=== PATIENT | male | born 1965 | race Caucasian/White ===

== ENCOUNTER 2023-09-14 11:26 | Emergency (ER) | payer OTHER, SELFPAY ==
[2023-09-14 11:36] VITALS: BP 168/110
[2023-09-14 12:06] VITALS: BMI 33.2
[2023-09-14 12:32] LABS: % Basophils 0.6 % (0-2); % Immature Granulocytes 0.3 % (0-0.5); % Lymphocytes 14.3 % (20.5-51.1); % Neutrophils 73.8 % (42.2-75.2); Absolute Monocytes 0.7 10^3/uL (0.1-0.6); Hematocrit 51.5 % (39.0-52.0); Hemoglobin 18.4 g/dL (13.0-18.0); Mean Corp Hgb Conc. 35.7 g/dL (33.0-37.0); Mean Corpuscular Hgb 30.2 pg (27.0-31.0); Mean Corpuscular Volume 84.4 fL (80.0-94.0); Mean Platelet Volume 8.8 fL (7.4-10.4); Nucleated Red Blood Cells % 0 % (-); Platelet Count 234 10^3/uL (130-400); Red Cell Dist. Width 12.4 % (11.5-14.5); White Blood Cell Count 6.7 10^3/uL (4.8-10.8)
[2023-09-14 12:38] VITALS: BP 146/90
[2023-09-14 13:00] LABS: ALT (SGPT) 37 U/L (0-50); AST (SGOT) 39 U/L (17-59); Albumin 4.5 g/dl (3.5-5.0); Alkaline Phosphatase 67 U/L (38-126); Blood Urea Nitrogen 16 mg/dl (9-20); Calcium 9.5 mg/dl (8.4-10.2); Carbon Dioxide 32 mmol/L (22-30); Chloride 95 mmol/L (98-107); Estimated Creatinine Clearance 93 ml/min; Glucose 105 mg/dl (70-99); Lipase 74 U/L (23-300); Potassium 4.2 mmol/L (3.5-5.1); Sodium 135 mmol/L (135-145); Total Bilirubin 0.6 mg/dl (0.2-1.3); Total Protein 7.1 g/dl (6.3-8.2); eGFR > 60.00
--- NOTE | 2023-09-14 13:15 | ED.GENMED ---
History of Present Illness
General
Chief Complaint: Abdominal Pain
Source: patient
Exam Limitations: none
Time Seen by Provider: 09/14/23 11:45
Nursing documentation reviewed up to this point in time: agreed with
History of Present Illness
History of Present Illness:
57-year-old male with a past medical history of hypertension, recurrent diverticulitis who presents to the emergency room for evaluation of abdominal pain. Patient reports onset of symptoms 5 days ago and has been generally worsening since that
time. He reports pain mainly across his lower abdomen. No clear triggering or relieving factors noted. He says he has had similar symptoms many times in the past from diverticulitis. He says that he was prescribed antibiotics (Augmentin) for
presumptive diverticulitis which he has been taking for the past 5 days without improvement. He has had some nausea and decreased appetite but no vomiting. He says occasional loose stools. He reports subjective fever but has not checked his
temperature at home. Denies any urinary symptoms. He denies any back or flank pain. He denies any chest pain or shortness of breath or any other symptoms. Prior surgical history of cholecystectomy.
Review of Systems
Review of Systems
All Other Systems: ROS reviewed and negative except as documented in HPI and ROS
Constitutional: Reports fever and chills
EENT: Denies sore throat or runny nose
Respiratory: Denies cough or trouble breathing
Cardiac: Denies chest pain
ABD/GI: Reports abdominal pain, nausea and diarrhea; Denies vomiting
: Denies dysuria, frequency or flank pain
Musculoskeletal: Denies neck pain or back pain
Neurological: Denies dizzy, headache, weakness or numbness
Phy Exam
Physical Exam
Physical Exam:
General: Awake, alert; no acute distress
Head: Normocephalic, atraumatic
Eyes: Conjunctiva normal, sclera anicteric
Throat: Airway intact, handling secretions
Neck: Trachea midline, supple without meningismus
Lungs: Clear to auscultation bilaterally, no wheezing, rales, rhonchi
Heart: Regular rate and rhythm, no murmurs, gallops, or rubs
Abd: Soft, non distended, tender to palpation across lower abdomen worse in the left lower quadrant
Back: No CVA tender
Neuro: No gross deficit
Skin: no rash
Extremities: No edema in extremities, warm well-perfused
Scores
Heart Failure Risk
Heart Failure Risk Score: Not Applicable
Heart Score for Chest Pain Patients
STEMI patient?: Not applicable
Withdrawal Assessment of Alcohol
Withdrawal Assessment Completed?: Not applicable
Course
Orders/Labs/Results
Orders:
Orders
09/14/23 12:21
CMP [Comprehensive Metabolic Panel] Urgent
Complete Blood Count/With Diff Urgent
Lipase Urgent
09/14/23 12:34
CT Abd/pelvis W Iv Cont Urgent
Comment:
Reason For Exam: lower abd pain, h/o diverticulitis
09/14/23 12:46
Urinalysis Reflex To Culture Urgent
Date Specimen was Collected: 09/14/23
Time Specimen was Collected: 12:44
Urine Microscopic Reflex Cult Urgent
09/14/23 14:39
Ciprofloxacin HCl [Cipro] 500 mg PO ONCE ONE
MetroNIDAZOLE [Flagyl] 500 mg PO NOW STA
Abnormal Lab Results
09/14/23 09/14/23
12:21 12:46
Hgb 18.4 H g/dL
(13.0-18.0)
Absolute Lymphs (auto) 1.0 L 10^3/uL
(1.2-3.4)
Absolute Monos (auto) 0.7 H 10^3/uL
(0.1-0.6)
Lymphocytes % 14.3 L %
(20.5-51.1)
Monocytes % 11.0 H %
(1.7-9.3)
Chloride 95 L mmol/L
(98-107)
Carbon Dioxide 32 H mmol/L
(22-30)
Glucose 105 H mg/dl
(70-99)
Ur Occult Blood Reflex Trace A
(Negative)
09/14/23 12:21
09/14/23 12:21
Vital Signs
Initial and Last Documented VS:
Initial Vital Signs
Temp Pulse Resp BP Pulse Ox
36.6 C 75 16 168/110 97
09/14/23 11:36 09/14/23 11:36 09/14/23 11:36 09/14/23 11:36 09/14/23 11:36
Last Documented Vital Signs
Temp Pulse Resp BP Pulse Ox
36.6 C 74 18 160/96 97
09/14/23 11:36 09/14/23 14:17 09/14/23 14:17 09/14/23 14:17 09/14/23 14:17
MDM/Problems Addressed
Differential Diagnosis Includes:
Diverticulitis, appendicitis, nephrolithiasis, UTI
MDM/Problems Addressed:
57-year-old male presents for evaluation of lower abdominal pain for the past 5 days similar to prior episodes of diverticulitis but refractory to Augmentin. Hypertensive but otherwise normal vitals. Physical exam as above. Plan place an IV check
labs including CBC and CMP, urinalysis. Will check CT of the abdomen pelvis. Offered pain medication but patient declined. Monitor closely reassess after the above.
Labs reviewed: CBC and CMP no clinically significant abnormalities. Urinalysis negative for infection. CT of the abdomen pelvis shows findings consistent with acute uncomplicated diverticulitis.
Discussed with the patient�he has no signs of sepsis, uncomplicated diverticulitis. I offered for admission to the hospital for treatment versus discharge on alternate antibiotic�he wishes to trial alternate antibiotic course. I think this is a
reasonable plan. He has seen colorectal surgery in the past given his recurrent episodes I urged him to be evaluated once again after this most recent episode given the frequency of his attacks. I spoke to him about strict return precautions
including if this alternate regimen is not improving his symptoms or if they are getting worse at any time. He indicated understanding. All questions were answered.
Acute Exacerbation and/or Progression of Chronic Illness:
Acutely hypertensive improved without intervention continue to monitor but no additional antihypertensive indicated at present
Acute Exacerbation and/or Progression of Chronic Illness: HTN
*Radiology
Radiology exam reviewed: radiology read reviewed
*Pulse Oximetry
Patient hypoxic: no
*Critical Care Note
Total Time (30-74mins, 75-104mins- exclusive of procedures): Not Applicable
Data Reviewed
Review of Other/Old Records Reveals: Labs and Records
Source: patient and records
ED Attending Note
-
Portions of this chart may have been created with voice recognition software.� Occasional wrong word or��sound alike� substitutions may have occurred due to the inherent limitations of voice recognition software.
Discharge Plan
Departure
Patient Disposition: Home (Routine Discharge)
Date of Disposition: 09/14/23
Time of Disposition: 14:40
Patient with high blood pressure during this ER visit?: Yes
Discharge Problem:
Acute diverticulitis
Instructions: Diverticulitis (DC)
Prescriptions:
New
ciprofloxacin HCl 500 mg tablet
500 mg PO BID Qty: 20 0RF
metronidazole 500 mg tablet
500 mg PO TID Qty: 30 0RF
No Action
amoxicillin-pot clavulanate 1 TABLET tablet
1 tab PO Q12 Qty: 20 0RF
ondansetron 4 MG tablet,disintegrating
4 mg PO TIDPRN PRN (Reason: nausea) Qty: 12 0RF
Referrals:
Mehul Calderón MD [Active] - Call in 1-3 days for appt (Call for follow up given recurrent episodes of diverticulitis)
Gilberto Short DO [Family Provider] - Follow up in 2-3 days
Activity Restrictions/Additional Instructions:
Thank you for visiting the Emergency Department at [facility].
1. Please schedule a follow up appointment as directed. Call first thing tomorrow morning to make an appointment.
2. If indicated, please take your medications as instructed and indicated on discharge paperwork.
3. If any of your symptoms do not improve, or persist, or become more severe within 6-12 hours, please return to the emergency department for further care.
4. Please return to the emergency department if you develop a headache, neck pain/stiffness, fever greater than 100.4F, chest pain, shortness of breath, persistent nausea, vomiting, slurred speech, difficulty walking, numbness/tingling, weakness,
signs of infection or any other symptoms that are worrisome to you.
Please call [phone] if you have any questions.
Interventions
Interventions:
*Risk Screen - Suicide Last Done: 09/14/23 12:11
*General Assessment Last Done: 09/14/23 11:36
*Neglect/Abuse Screening Last Done: 09/14/23 12:11
ED- Fall Risk Assessment Last Done: 09/14/23 12:33
*ED COVID-19 Vaccine History Last Done: 09/14/23 11:36
QG-Micgqg-Squqlvfyph Assessment Last Done: 09/14/23 12:11
Discharge Date and Time
Print Language: ESTONIAN
[2023-09-14 13:17] LABS: Urine Albumin Negative (Neg - Trace); Urine Bilirubin Negative (Negative); Urine Character Clear (Clear); Urine Color Yellow; Urine Glucose Negative (Negative); Urine Ketone Negative (Negative); Urine Leukocyte Negative (Negative); Urine Nitrite Negative (Negative); Urine Occult Blood Trace (Negative); Urine Specific Gravity 1.005 (<1.030); Urine Urobilinogen Negative (Neg - 1+)
[2023-09-14 14:17] VITALS: BP 160/96
[2023-09-14 14:35] LABS: Urine Amorphous Seen; Urine Red Blood Cell 0-2 /HPF (0-2)
[2023-09-14 14:36] LABS: Urine White Cell 0-2 /HPF (0-5)
[2023-09-14] MEDS: CIPRO 500 MG PO (14:50)
[2023-09-14] MEDS: FLAGYL 500 MG PO (14:50)
[2023-09-14 14:55] VITALS: BP 170/89
[2023-09-14 15:00] VITALS: BP 170/89
--- NOTE | 2023-09-14 15:00 | EDRN ---
Reviewed discharge instructions with patient. Verbalized understanding. Ambulated with steady gait to the lobby.
== END 2023-09-14 15:00 | disposition home or self-care (01) ==
LOC: EMR 11:26
PROVIDERS: EMERGENCY PHYSICIAN Emergency Medicine; FAMILY PHYSICIAN Family Medicine
DX: K57.92 Diverticulitis of intestine, part unspecified, without perforation or abscess without bleeding (principal); R10.9 Unspecified abdominal pain; I10 Essential (primary) hypertension; Z90.49 Acquired absence of other specified parts of digestive tract
CPT/HCPCS: 99284; 74177; 80053; 81003; 81015; 83690; 85025; Q9967

== ENCOUNTER 2023-11-13 10:59 | Inpatient (IN) | payer OTHER, SELFPAY ==
[2023-11-10 07:51] VITALS: BMI 33.6
[2023-11-10 09:46] LABS: Hemoglobin 16.6 g/dL (13.0-18.0); Mean Corp Hgb Conc. 35.3 g/dL (33.0-37.0); Mean Corpuscular Hgb 30.3 pg (27.0-31.0); Mean Corpuscular Volume 85.8 fL (80.0-94.0); Mean Platelet Volume 9.8 fL (7.4-10.4); Platelet Count 261 10^3/uL (130-400); Red Blood Cell Count 5.48 10^6/uL (4.70-6.10); Red Cell Dist. Width 13.5 % (11.5-14.5); White Blood Cell Count 6.4 10^3/uL (4.8-10.8)
[2023-11-10 09:53] LABS: INR 1.03; PT 13.3 Sec (11.4-14.6)
[2023-11-10 09:54] LABS: APTT 29.5 Sec (23.4-35.0)
[2023-11-10 10:17] LABS: ALT (SGPT) 34 U/L (0-50); AST (SGOT) 28 U/L (17-59); Albumin 4.1 g/dl (3.5-5.0); Alkaline Phosphatase 66 U/L (38-126); Blood Urea Nitrogen 16 mg/dl (9-20); Calcium 9.1 mg/dl (8.4-10.2); Carbon Dioxide 27 mmol/L (22-30); Chloride 102 mmol/L (98-107); Estimated Creatinine Clearance 112 ml/min; Glucose 114 mg/dl (70-99); Sodium 142 mmol/L (135-145); Total Bilirubin 0.6 mg/dl (0.2-1.3); Total Protein 6.5 g/dl (6.3-8.2); eGFR > 60.00
[2023-11-10 11:02] LABS: Glycohemoglobin (HgbA1c) 5.6 % (4.0-5.6)
[2023-11-13] VITALS (10 sets, daily range): BP systolic 118–169; BP diastolic 61–98; BMI 33.6
[2023-11-13] MEDS: HEPARIN 5000 UNITS SC (11:36)
[2023-11-13] MEDS: TYLENOL 1000 MG PO (11:37)
[2023-11-13] MEDS: ENTEREG 12 MG PO (11:38)
[2023-11-13] MEDS: NORMOSOL-R/PLASMALYTE-A 1000 IV ×2 (11:39→19:30)
--- NOTE | 2023-11-13 16:55 | W.IMMPOSTOP ---
Surgical Immed Post Op Note
-
Primary Surgeon: Mikael Calderón MD
Assistants: DEBBIE Mclaughlin & TOAN Bourgeois
Pre-op Diagnosis: Recurrent sigmoid diverticulitis
Post-op Diagnosis: Same
Procedure Performed: Robotic sigmoid colectomy with intracorporeal anastomosis
Anesthesia Type: GET
Specimen / Cultures: Sigmoid colon (suture is proximal)
Estimated Blood Loss: 15cc
Complications: None
Operative Findings: Chronic sigmoid diverticulitis
28mm EEA
Normal leak test
Patient's updated.
[2023-11-13] MEDS: DILAUDID 0.5 MG IV (17:39)
[2023-11-13] MEDS: TORADOL 15 MG IV ×2 (17:46→23:06)
--- NOTE | 2023-11-13 18:33 | PTCARENOTE ---
Telephone report received from [employer] Con[employer]; patient arrived at 18:23, VSS, admission questions completed, will give detailed report to nightshift RN.
[2023-11-13] MEDS: TYLENOL PO (20:54)
[2023-11-13] MEDS: TYLENOL 650 MG PO (23:06)
[2023-11-14 01:30] VITALS: BP 146/87
[2023-11-14] MEDS: NORMOSOL-R/PLASMALYTE-A 1000 IV (04:18)
[2023-11-14] MEDS: TYLENOL PO (04:42)
[2023-11-14] MEDS: TORADOL 15 MG IV ×3 (05:19→17:10)
[2023-11-14 06:00] VITALS: BMI 33.0
[2023-11-14 06:27] VITALS: BP 154/98
[2023-11-14] MEDS: ENTEREG 12 MG PO ×2 (07:40→19:49)
[2023-11-14] MEDS: TYLENOL 650 MG PO ×4 (07:40→19:49)
[2023-11-14 07:41] VITALS: BP 156/87
[2023-11-14] MEDS: HYZAAR 100-25 TABLET 1 TAB PO (07:41)
[2023-11-14 07:42] LABS: % Basophils 0.2 % (0-2); % Immature Granulocytes 0.5 % (0-0.5); % Lymphocytes 9.5 % (20.5-51.1); % Monocytes 6.6 % (1.7-9.3); % Neutrophils 83.2 % (42.2-75.2); Absolute Immature Granulocytes 0.1 10^3/uL (0-0.05); Absolute Lymphocytes 1.2 10^3/uL (1.2-3.4); Absolute Monocytes 0.9 10^3/uL (0.1-0.6); Absolute Neutrophils 10.8 10^3/uL (1.4-6.5); Hematocrit 41.7 % (39.0-52.0); Hemoglobin 14.9 g/dL (13.0-18.0); Mean Corp Hgb Conc. 35.7 g/dL (33.0-37.0); Mean Corpuscular Hgb 29.7 pg (27.0-31.0); Mean Corpuscular Volume 83.2 fL (80.0-94.0); Mean Platelet Volume 9.4 fL (7.4-10.4); Nucleated Red Blood Cells % 0 % (-); Platelet Count 261 10^3/uL (130-400); Red Blood Cell Count 5.01 10^6/uL (4.70-6.10); Red Cell Dist. Width 13.9 % (11.5-14.5)
[2023-11-14 08:22] LABS: Blood Urea Nitrogen 13 mg/dl (9-20); Calcium 8.4 mg/dl (8.4-10.2); Carbon Dioxide 27 mmol/L (22-30); Chloride 98 mmol/L (98-107); Estimated Creatinine Clearance 111 ml/min; Glucose 125 mg/dl (70-99); Potassium 3.9 mmol/L (3.5-5.1); Sodium 135 mmol/L (135-145); eGFR > 60.00
--- NOTE | 2023-11-14 11:20 | W.PN.CRS1 ---
Today's Communication / Plan
-
fulls
lovenox
d/c weems
Assessment/Plan
-
POD#1 Robotic sigmoid colectomy with intracorporeal anastomosis
-WBC 13.0, expected post op. Afebrile, trend.
-Advance to full liquids.
-D/C IVFs when tolerating po.
-D/C weems.
-OOB as tolerated
-Lovenox for DVT prophylaxis. TEDS/SCDS in place.
-Pain medication: Tylenol/toradol standing, Dilaudid PRN.
-OR pathology pending
-Likley d/c in Am
Subjective Data
Procedure
11/12- Robotic sigmoid colectomy with intracorporeal anastomosis
Subjective Data
Date of Service: November 14, 2023
Patient states he feels well. He denies nausea or vomiting. He is passing flatus. He minimal pain. He is wanting to get out of bed.
Objective Data
-
Vital Signs
Temp Pulse Resp BP Pulse Ox
98.5 F 76 19 152/91 97
11/14/23 07:41 11/14/23 07:41 11/14/23 07:41 11/14/23 07:41 11/14/23 07:41
Intake & Output
11/13/23 11/14/23 11/15/23
06:59 06:59 06:59
Intake Total 1880 / 1880
Output Total 1325 / 1325
Balance 555 / 555
Intake:
Oral fluids 480 / 480
IV fluids (Total) 1400 / 1400
NORMOSOL 200 / 200
Output:
Urine, Weems 125 / 125
Urine, Voided 1200 / 1200
Lab Results
11/14/23 07:00
11/14/23 07:00
Physical Exam
-
General: No Acute Distress and AOx3
Abdomen: Soft, Non Distended and Non Tender
Skin: Warm and Dry
Incision: Clear, Dry, Intact
[2023-11-14 11:25] VITALS: BP 150/78
[2023-11-14] MEDS: NORMOSOL-R/PLASMALYTE-A IV (13:26)
[2023-11-14 15:37] VITALS: BP 155/82
[2023-11-14] MEDS: LOVENOX 40 MG SC (17:10)
[2023-11-14 23:14] VITALS: BP 137/83
[2023-11-15] MEDS: TYLENOL PO ×2 (01:13→05:07)
[2023-11-15] MEDS: TORADOL IV (01:13)
[2023-11-15] MEDS: TORADOL 15 MG IV ×2 (05:32→11:00)
[2023-11-15 06:00] VITALS: BMI 32.6
[2023-11-15 06:55] VITALS: BP 154/95
[2023-11-15 07:42] LABS: % Basophils 0.4 % (0-2); % Eosinophils 0.4 % (0-6); % Immature Granulocytes 0.4 % (0-0.5); % Lymphocytes 27.9 % (20.5-51.1); % Neutrophils 62.9 % (42.2-75.2); Absolute Lymphocytes 2.8 10^3/uL (1.2-3.4); Absolute Monocytes 0.8 10^3/uL (0.1-0.6); Absolute Neutrophils 6.4 10^3/uL (1.4-6.5); Hematocrit 42.5 % (39.0-52.0); Mean Corp Hgb Conc. 35.3 g/dL (33.0-37.0); Mean Corpuscular Hgb 30.4 pg (27.0-31.0); Mean Platelet Volume 9.8 fL (7.4-10.4); Nucleated Red Blood Cells % 0 % (-); Platelet Count 225 10^3/uL (130-400); Red Blood Cell Count 4.94 10^6/uL (4.70-6.10); Red Cell Dist. Width 14.1 % (11.5-14.5); White Blood Cell Count 10.2 10^3/uL (4.8-10.8)
[2023-11-15] MEDS: ENTEREG 12 MG PO (07:42)
[2023-11-15] MEDS: TYLENOL 650 MG PO ×2 (07:42→11:00)
[2023-11-15] MEDS: HYZAAR 100-25 TABLET 1 TAB PO (07:42)
--- NOTE | 2023-11-15 11:27 | W.PN.CRS1 ---
Today's Communication / Plan
-
low residue
d/c
Assessment/Plan
-
POD#2 Robotic sigmoid colectomy with intracorporeal anastomosis
-WBC 10.2.
-Advance to low residue.
-OOB as tolerated
-Lovenox for DVT prophylaxis. TEDS/SCDS in place.
-Pain medication: Tylenol/toradol standing, Dilaudid PRN.
-OR pathology pending
-Okay for d/c if tolerating a low residue diet. All discharge instructions discussed with the patient.
Subjective Data
Procedure
11/12- Robotic sigmoid colectomy with intracorporeal anastomosis
Subjective Data
Date of Service: November 15, 2023
Patient feels well. He is having bowel movements and flatus. He denies nausea or vomiting. He is feeling well.
Objective Data
-
Vital Signs
Temp Pulse Resp BP Pulse Ox
98.6 F 63 16 163/93 98
11/15/23 06:55 11/15/23 07:42 11/15/23 06:55 11/15/23 07:42 11/15/23 06:55
Intake & Output
11/14/23 11/15/23 11/16/23
06:59 06:59 06:59
Intake Total 1880 / 1880 2620 / 2620
Output Total 1325 / 1325 3000 / 3000
Balance 555 / 555 -380 / -380
Intake:
Oral fluids 480 / 480 2019 / 2019
IV fluids (Total) 1400 / 1400 600 / 600
NORMOSOL 200 / 200
Output:
Urine, Abdullahi 125 / 125 1900 / 1900
Urine, Voided 1200 / 1200 1100 / 1100
Other:
Number of approximated MODERATE 3
amounts of urine
Number of approximated LARGE 3
amounts of urine
Lab Results
11/15/23 07:05
11/14/23 07:00
Physical Exam
-
General: No Acute Distress and AOx3
Abdomen: Soft, Non Distended and Non Tender
Skin: Warm and Dry
[2023-11-15 11:55] VITALS: BP 164/95
== END 2023-11-15 12:54 | disposition home or self-care (01) | DRG 331 ==
LOC: 2 SOUTH 10:59
PROVIDERS: Physician Assistant; ADMITTING PHYSICIAN Surgery; FAMILY PHYSICIAN Family Medicine
PROC: 8E0W4CZ Robotic Assisted Procedure of Trunk Region, Percutaneous Endoscopic Approach (ICD-10-PCS; 2023-11-13)
PROC: 0DTN4ZZ Resection of Sigmoid Colon, Percutaneous Endoscopic Approach (ICD-10-PCS; 2023-11-13)
DX: K57.32 Diverticulitis of large intestine without perforation or abscess without bleeding (principal); K66.0 Peritoneal adhesions (postprocedural) (postinfection)
CPT/HCPCS: 88307; 36415; 80048; 80053; 83036; 85025; 85027; 85610; 85730; 86850; 86900; 86901; 93005; 99406; J1335